=== PATIENT | male | born 2000 | race African-American/Black ===

== ENCOUNTER 2019-04-15 12:39 | Inpatient (IN) ==
[2019-04-15] MEDS ORDERED: MORPHINE 4 MG/1 ML VIAL IV PRN (15:09)
[2019-04-15] MEDS ORDERED: ONDANSETRON 4 MG/2 ML VIAL IV PRN (15:09)
[2019-04-15] MEDS ORDERED: ACETAMINOPHEN 325 MG TABLET PO PRN (15:09)
[2019-04-15] MEDS ORDERED: PROMETHAZINE 25 MG/1 ML VIAL IM PRN (15:09)
[2019-04-15 16:34] LABS: Basophils % 1.5 % (0.0-0.8); Hematocrit 52.6 VOL% (42.0-52.0); Hemoglobin 18.3 GM/DL (14.0-18.0); Immature Granulocytes % 0.5 %; Immature Granulocytes Absolute 0.01 #; Lymphocytes # 0.7 10*3/uL (1.4-4.0); Lymphocytes % 36.5 % (21.2-54.2); Mean Corpuscular HGB Conc 34.8 GM/DL (32-36); Mean Corpuscular Volume 93.6 FL (87-102); Mean Platelet Volume 10.4 FL (9.6-12.0); Monocytes % 3.9 % (1.7-12.7); Neutrophils % 57.6 % (38.7-73.9); Red Blood Count 5.62 MC/CUMM (3.8-5.5); Red Cell Distribution Width 12.2 % (9.3-17.3)
[2019-04-15 16:40] LABS: Platelet Count 48 T/CUMM (130-400)
[2019-04-15 17:08] LABS: Lymphocytes 20 % (20-55); Segmented Neutrophils 78 % (50-85); Total Cells Counted 100
[2019-04-15 17:12] LABS: Albumin 3.6 G/DL (3.4-5.0); Bilirubin,Total 0.8 MG/DL (0.2-1.0); Calcium 8.7 MG/DL (8.5-10.1); Osmolality,Calculated 278.7 MOS/KG (273-304); Risk Ratio 4.79; Thyroid Stimulating Hormone 0.55 uIU/ml (0.358-3.74); Total Protein 7.5 G/DL (6.4-8.3); VLDL CHOLESTEROL 47.6 MG/DL
[2019-04-15 17:15] LABS: Anisocytosis 2+; Platelet Estimate Decreased; Poikilocytosis 1+; Troponin I < 0.015 NG/ML (0.00-0.045)
[2019-04-15] MEDS ORDERED: LACTATED RINGERS 1,000 ML IV ONE (17:22)
[2019-04-15] MEDS: DEXTROSE 5% NACL 0.45% 1,000 ML IV SCH (19:13)
[2019-04-15 19:40] LABS: Apearance,Urine CLEAR (Clear); Bilirubin,Urine Negative (Negative); Blood, Urine Small mg/dL (Negative); Glucose,Urine (UA) Negative (Negative); Ketones,Urine 20 mg/dL (Negative); Nitrite,Urine Negative (Negative); Protein,Urine Negative; RBC,Urine 2 /HPF (0-4); Urine Color Yellow (Yellow); Urine Specific Gravity 1.058 (1.001-1.035); Urine Urobilinogen < 2.0 EU/DL (0.2-1.0); WBC,Urine 1 /HPF (0-6)
[2019-04-15 20:11] LABS: Barbiturates Screen,Urine Negative (Negative); Benzodiazepines Screen,Urine Negative (Negative); Cannabinoid Screen,Urine Positive (Negative); Opiate Screen,Urine Negative (Negative); Phencyclidine Screen,Urine Negative (Negative)
[2019-04-16 05:26] LABS: Hepatitis B Core IgM Quant 0.13 Index; Hepatitis B Surface Ag Quant < 0.10 Index; Hepatitis B Surface Ag Result Negative (Negative); Hepatitis C Virus Ab Quant 0.03 Index; Hepatitis C Virus Ab Result Negative (Negative)
[2019-04-16 05:35] LABS: Basophils # 0.1 10*3/uL (0.0-0.2); Basophils % 2.5 % (0.0-0.8); Hematocrit 47.2 VOL% (42.0-52.0); Hemoglobin 16.3 GM/DL (14.0-18.0); Immature Granulocytes % 0.8 %; Immature Granulocytes Absolute 0.02 #; Lymphocytes # 1.7 10*3/uL (1.4-4.0); Lymphocytes % 68.5 % (21.2-54.2); Mean Corpuscular HGB Conc 34.5 GM/DL (32-36); Mean Corpuscular Volume 92.5 FL (87-102); Mean Platelet Volume 12.2 FL (9.6-12.0); Monocytes % 8.7 % (1.7-12.7); Neutrophils % 19.5 % (38.7-73.9); Platelet Count 57 T/CUMM (130-400); Red Cell Distribution Width 12.1 % (9.3-17.3); White Blood Count 2.4 T/CUMM (4-12)
[2019-04-16 06:02] LABS: Hypochromasia Slight; Lymphocytes 67 % (20-55); Microcytosis Slight; Reactive Lymphocytes Few; Segmented Neutrophils 22 % (50-85); Total Cells Counted 100
[2019-04-16 06:07] LABS: Platelet Estimate Decreased
[2019-04-16] MEDS: DEXTROSE 5% NACL 0.45% 1,000 ML IV SCH ×3 (06:16→20:13)
[2019-04-16 06:30] LABS: Alanine Aminotransferase 76 U/L (16-61); Albumin 3.3 G/DL (3.4-5.0); Alkaline Phosphatase 56 U/L (45-117); Aspartate Amino Transferase 150 U/L (0-37); Blood Urea Nitrogen 17 MG/DL (7-18); Calcium 8.8 MG/DL (8.5-10.1); Estimated Glom Filtration Rate 118 ML/MIN; Glucose 151 MG/DL (74-106); Osmolality,Calculated 283.4 MOS/KG (273-304); Total Protein 6.7 G/DL (6.4-8.3)
[2019-04-16 08:15] LABS: HIV Antigen/Antibody Result Reactive (Nonreactive)
[2019-04-16] MEDS: PANTOPRAZOLE 40 MG TABLET PO SCH (09:46)
[2019-04-16] MEDS: CHOLESTYRAMINE 4 GM PACK PO SCH ×2 (12:22→20:51)
[2019-04-17] MEDS: DEXTROSE 5% NACL 0.45% 1,000 ML IV SCH ×2 (02:54→09:57)
[2019-04-17 08:43] LABS: Basophils % 0.9 % (0.0-0.8); Hematocrit 45.9 VOL% (42.0-52.0); Hemoglobin 15.4 GM/DL (14.0-18.0); Immature Granulocytes % 0.3 %; Immature Granulocytes Absolute 0.01 #; Lymphocytes # 1.7 10*3/uL (1.4-4.0); Lymphocytes % 52.3 % (21.2-54.2); Mean Corpuscular HGB Conc 33.6 GM/DL (32-36); Mean Platelet Volume 11.3 FL (9.6-12.0); Neutrophils % 33.5 % (38.7-73.9); Platelet Count 74 T/CUMM (130-400); Red Blood Count 4.83 MC/CUMM (3.8-5.5); Red Cell Distribution Width 12.1 % (9.3-17.3); White Blood Count 3.3 T/CUMM (4-12)
[2019-04-17 08:59] LABS: Albumin 3.2 G/DL (3.4-5.0); Bilirubin,Total 0.9 MG/DL (0.2-1.0); Calcium 8.5 MG/DL (8.5-10.1); Total Protein 6.2 G/DL (6.4-8.3)
[2019-04-17 09:08] LABS: Atypical Lymphocytes Few; Lymphocytes 59 % (20-55); Platelet Estimate Decreased; Segmented Neutrophils 35 % (50-85); Total Cells Counted 100
[2019-04-17 09:09] LABS: Microcytosis Slight
[2019-04-17] MEDS: CHOLESTYRAMINE 4 GM PACK PO SCH (09:58)
[2019-04-17] MEDS: PANTOPRAZOLE 40 MG TABLET PO SCH (09:58)
[2019-04-17 11:33] VITALS: BP 107/68
[2019-04-18 23:51] LABS: CDT Result Positive (Negative); CDT Specimen Source STOOL
[2019-04-20 16:21] LABS: % CD4 (T Cells) 22 % (32-64); % CD8 (T Cells) 61 % (18-40); 4/8 Ratio 0.4 (>=0.9)
== END 2019-04-17 14:50 | disposition home or self-care (01) | DRG 977 ==
LOC: N.2E → SUATTDRO 14:33
PROVIDERS: ADMIT Internal Medicine; ATTEND Internal Medicine